=== PATIENT | female | born 1965 | race Asian ===

== ENCOUNTER 2016-06-26 21:29 | Emergency (ER) | payer OTHER ==
[2016-06-26 21:37] VITALS: BP 111/68; PULSE 84; TEMP 98; BMI 24.2
[2016-06-26] MEDS ORDERED: DIPHTH,PERTUSS(ACELL),TET 0.5 ML DISP.SYRIN IM ONE (22:26)
--- NOTE | 2016-06-26 22:32 | PDOC ---
History of Present Illness - General Chief Complaint: Laceration Stated Complaint: LACERATION Time Seen by Provider: 06/26/16 21:58 - History of Present Illness Initial Comments: 06/26/16 23:03 Patient is a 50-year-old female with no significant past medical history presenting to the emergency room today after cutting her hand with a knife while slicing chicken. She states that she felt it go through her nail and hit the side of her left index finger. Denies numbness or tingling to the area denies weakness. Does not remember the date of her last tetanus shot. Denies fevers chills nausea vomiting chest pain shortness of breath. Past History - Past Medical History Allergies/Adverse Reactions: Allergies Allergy/AdvReac Type Severity Reaction Status Date / Time No Known Drug Allergies Allergy Verified 06/26/16 21:34 Home Medications: Ambulatory Orders Metformin HCl [Glucophage -] 500 mg PO BID 06/26/16 Energy-3 Acid Ethyl Esters [Lovaza -] 1,000 mg PO BID 06/26/16 Anemia: Yes Diabetes: Yes Hypercholesterolemia: Yes - Surgical History Abdominal Surgery: Yes Appendectomy: Yes - Immunization History Immunization Up to Date: No - Psycho/Social/Smoking Cessation Hx Anxiety: No Suicidal Ideation: No Smoking Status: No Smoking History: Never smoked Number of Cigarettes Smoked Daily: 0 Hx Alcohol Use: No Drug/Substance Use Hx: No Substance Use Type: None Hx Substance Use Treatment: No *Physical Exam - Vital Signs Last Vital Signs Temp Pulse Resp BP Pulse Ox 98 F 84 18 111/68 98 06/26/16 21:36 06/26/16 21:36 06/26/16 21:36 06/26/16 21:36 06/26/16 21:36 - Physical Exam Comments: 06/26/16 23:04 GENERAL: Well developed, well nourished. Awake and alert. No acute distress. MUSCULOSKELETAL TTP of L nail bed. Normal range of motion at all joints. No bony deformities. No CVA tenderness. EXTREMITIES: 1 cm linear superficial laceration of the lateral ventral left index finger. There is a laceration through the L nailbed as well. The nailbed remains intact and under the skin.No cyanosis. No clubbing. No edema. No calf tenderness. SKIN: Warm and dry. Normal capillary refill. No rashes. No jaundice. NEUROLOGICAL: Alert, awake, appropriate. Cranial nerves 2-12 intact. No deficits to light touch and temperature in face, upper extremities and lower extremities. No motor deficits in the in face, upper extremities and lower extremities. Normoreflexic in the upper and lower extremities. Normal speech. Toes are down- going bilaterally. Gait is normal without ataxia. PSYCHIATRIC: Cooperative. Good eye contact. Appropriate mood and affect. Procedures - Laceration/Wound Repair Left 2nd digit Wound Length: to 2.5 cm Wound Explored: clean, no foreign body present Wound's Depth, Shape: superficial, irregular Irrigated w/ Saline: Yes Betadine Prep: Yes Wound Repaired With: Dermabond Medical Decision Making - Medical Decision Making 06/26/16 23:07 Superficial laceration of the lateral ventral left index finger. There is a linear 1.5cm laceration through the L nailbed as well. The nailbed remains intact and under the skin. Dermabond applied to the lacerated area. Hemostasis controlled at that time. Patient's tetanus was updated at this time. We'll discharge home. Patient understands to keep the area clean and dry. Patient understands discharge instructions and all questions were answered. *DC/Admit/Observation/Transfer Diagnosis at time of Disposition: Nailbed laceration, finger Qualifiers: Encounter type: initial encounter Qualified Code(s): S61.319A - Laceration without foreign body of unspecified finger with damage to nail, initial encounter Laceration of index finger Qualifiers: Encounter type: initial encounter Qualified Code(s): S61.218A - Laceration without foreign body of other finger without damage to nail, initial encounter - Discharge Dispostion Disposition: HOME Condition at time of disposition: Improved - Referrals Referrals: Karen Silva MD [Primary Care Provider] - - Patient Instructions Additional Instructions: You cut you finger and it was repaired with dermabond. You were given a tetanus shot. Keep the area clean, dry and covered. You may shower, but keep the area covered with a glove or plastic cling wrap. Follow up with your Primary Care doctor. If you develop fevers, chills, redness around the site or discharge from the site, return to the ED - Post Discharge Activity Work/School Note: Back to Work
== END 2016-06-26 22:42 | disposition home or self-care (01) ==
LOC: JERFT 21:29 → JER 21:29 → JERFT 22:42
PROC: 0HQFXZZ Repair Right Hand Skin, External Approach (ICD-10-PCS; principal; 2016-06-26)
DX: S61.311A Laceration without foreign body of left index finger with damage to nail, initial encounter (principal); W26.0XXA Contact with knife, initial encounter; Y93.G1 Activity, food preparation and clean up; Y92.010 Kitchen of single-family (private) house as the place of occurrence of the external cause
CPT/HCPCS: 90715; 99281-25